=== PATIENT | male | born 1980 | race African-American/Black ===

== ENCOUNTER 2021-04-12 13:01 | Emergency (ER) | payer OTHER ==
[2021-04-12 13:26] VITALS: BP 145/111; PULSE 79; TEMP 97.9; BMI 25.3
[2021-04-13] MEDS ORDERED: KETOROLAC TROMETHAMINE 60 MG/2 ML VIAL ONE (18:45)
== END 2021-04-12 13:35 | disposition left against medical advice (07) ==
LOC: JERFT 13:01
DX: M79.621 Pain in right upper arm (principal); M79.622 Pain in left upper arm
CPT/HCPCS: 99281-25